=== PATIENT | male | born 1975 | race Caucasian/White ===

== ENCOUNTER 2016-11-19 08:54 | Emergency (ER) | payer OTHER ==
[~2016-11-19] VITALS: Ht 172.7 cm; Wt 139.1 kg
[~2016-11-19 08:54] MED LIST: ALBU8.5H8 IH; BUDE10.2 IH; BUSP30TA2 PO; OXCA300T PO; PRED10 PO; PRED20 PO; PRED5 PO; PROP10TA73 PO; QUET25TA PO; WARF5 PO
[2016-11-19] MEDS ORDERED: HYD25 PO (09:07)
[2016-11-19] MEDS ORDERED: TRAVZOS OU (09:07)
[2016-11-19] MEDS ORDERED: METO25 PO (09:07)
[2016-11-19] MEDS ORDERED: TYL3B PO (09:07)
[2016-11-19 09:33] LABS: BASOPHILS % (AUTO) 0.7 % (0.0-2.0); EOSINOPHILS % (AUTO) 6.9 % (1.0-6.0); HEMOGLOBIN 13.6 g/dL (13.5-17.5); LYMPHOCYTES # (AUTO) 1.2 K/uL (1.0-4.8); LYMPHOCYTES % (AUTO) 30.4 % (22.0-44.0); MEAN CORPUSCULAR HEMOGLOBIN 29.7 pg (26.0-34.0); MEAN CORPUSCULAR HGB CONC 34.1 G/dL (31.0-37.0); MEAN CORPUSCULAR VOLUME 87 fL (80-100); MONOCYTES # (AUTO) 0.5 K/uL (0.1-1.0); MONOCYTES % (AUTO) 11.8 % (2.0-9.0); NEUTROPHILS % (AUTO) 50.2 % (40.0-70.0); PLATELET COUNT (AUTO) 276 K/uL (150-450); RED BLOOD CELL COUNT(AUTO) 4.59 MIL/uL (4.50-5.90); RED CELL DISTRIBUTION WIDTH 15.4 % (11.5-14.5)
[2016-11-19 09:42] LABS: ANION GAP 6 mmol/L (8-16); CALCIUM, TOTAL 9.3 mg/dL (8.8-10.5); CARBON DIOXIDE 27 mmol/L (22-29); CHLORIDE 104 mmol/L (98-107); CREATININE 0.83 mg/dL (0.60-1.30); GLOMERULAR FILTR. RATE CALC > 60 mL/min (>60); SODIUM SERUM 137 mmol/L (136-145); UREA NITROGEN, BLOOD 16 mg/dL (7-18)
[2016-11-19 09:44] LABS: INR 3.2 (0.9-1.1); PROTHROMBIN TIME 33.5 SEC (9.4-11.6)
[2016-11-19 09:48] LABS: ALANINE AMINOTRANSFERASE 49 U/L (12-78); ALBUMIN 3.5 g/dL (3.4-5.0); ASPARTATE AMINOTRANSFERASE 26 U/L (15-37); BILIRUBIN,TOTAL 0.3 mg/dL (0.1-1.0)
[2016-11-19] MEDS ORDERED: DONNATAL/LIDOCAINE/MAALOX 55 ML BOTTLE PO ONE (11:00)
[2016-11-19 12:32] VITALS: BP 127/74
== END 2016-11-19 12:44 | disposition home or self-care (01) ==
LOC: EMS 08:56
DX: K21.9 Gastro-esophageal reflux disease without esophagitis (principal); J44.1 Chronic obstructive pulmonary disease with (acute) exacerbation; J45.909 Unspecified asthma, uncomplicated; Z77.22 Contact with and (suspected) exposure to environmental tobacco smoke (acute) (chronic); Z88.8 Allergy status to other drugs, medicaments and biological substances
CPT/HCPCS: 93005; 99285

== ENCOUNTER 2016-12-09 21:44 | Inpatient (IN) | payer OTHER ==
[~2016-12-09] VITALS: Ht 172.7 cm; Wt 139.0 kg
[~2016-12-09 21:44] MED LIST changes: +HYD25 PO; +METO25 PO; -PRED10 PO; -PRED20 PO; -PRED5 PO; -PROP10TA73 PO; +TRAVZOS OU; +TYL3B PO
[2016-12-09 22:05] LABS: BASOPHILS # (AUTO) 0.04 K/uL (0.00-0.20); BASOPHILS % (AUTO) 0.5 % (0.0-2.0); EOSINOPHILS # (AUTO) 0.17 K/uL (0.00-0.70); EOSINOPHILS % (AUTO) 2.43 % (1.0-6.0); HEMATOCRIT 37.9 % (41-53); HEMOGLOBIN 12.9 g/dL (13.5-17.5); LYMPHOCYTES # (AUTO) 1.7 K/uL (1.0-4.8); LYMPHOCYTES % (AUTO) 24.3 % (22.0-44.0); MEAN CORPUSCULAR HEMOGLOBIN 29.5 pg (26.0-34.0); MEAN CORPUSCULAR VOLUME 87 fL (80-100); MONOCYTES # (AUTO) 0.8 K/uL (0.1-1.0); MONOCYTES % (AUTO) 10.9 % (2.0-9.0); NEUTROPHILS # (AUTO) 4.4 K/uL (1.8-7.7); NEUTROPHILS % (AUTO) 61.9 % (40.0-70.0); PLATELET COUNT (AUTO) 244 K/uL (150-450); RED BLOOD CELL COUNT(AUTO) 4.37 MIL/uL (4.50-5.90); RED CELL DISTRIBUTION WIDTH 15.4 % (11.5-14.5); WHITE BLOOD COUNT (AUTO) 7.2 K/uL (4.5-11.0)
[2016-12-09 22:16] LABS: ANION GAP 11 mmol/L (8-16); CALCIUM, TOTAL 8.6 mg/dL (8.8-10.5); CARBON DIOXIDE 26 mmol/L (22-29); CHLORIDE 104 mmol/L (98-107); CREATININE 0.91 mg/dL (0.60-1.30); GLOMERULAR FILTR. RATE CALC > 60 mL/min (>60); INR 1.8 (0.9-1.1); POTASSIUM 3.8 mmol/L (3.5-5.1); PROTHROMBIN TIME 19.2 SEC (9.4-11.6); SODIUM SERUM 141 mmol/L (136-145); UREA NITROGEN, BLOOD 15 mg/dL (7-18)
[2016-12-09 22:33] LABS: B-TYPE NATRIURETIC PEPTIDE < 5 pg/mL (0-100)
[2016-12-09 22:41] LABS: ALANINE AMINOTRANSFERASE 44 U/L (12-78); ALBUMIN 3.7 g/dL (3.4-5.0); ASPARTATE AMINOTRANSFERASE 28 U/L (15-37); BILIRUBIN,TOTAL 0.2 mg/dL (0.1-1.0); CREATINE KINASE MB 3.3 ng/mL (0-5); CREATINE KINASE, TOTAL 635 U/L (39-308); TOTAL PROTEIN, SERUM 7.4 g/dL (6.4-8.2)
[2016-12-09 22:47] LABS: APPEARANCE,URINE CLEAR (CLEAR); GLUCOSE, URINE (UA) NEGATIVE (NEGATIVE); KETONES,URINE NEGATIVE (NEGATIVE); LEUKOCYTE ESTERASE ,URINE NEGATIVE (NEGATIVE); OCCULT BLOOD,URINE SMALL (NEGATIVE); PROTEIN,URINE NEGATIVE (NEGATIVE)
[2016-12-09 22:48] LABS: ADD UA MICROSCOPIC YES
[2016-12-09 22:54] LABS: SQUAMOUS EPITHELIAL CELL,UR Few /LPF (None Seen); WBC,URINE 0-2 /HPF (0-5)
[2016-12-09 23:40] VITALS: BP 129/64
[2016-12-10] MEDS ORDERED: METOPROLOL TARTRATE 25 MG TABLET PO SCH (00:30)
[2016-12-10] MEDS ORDERED: ACETAMINOPHEN 325 MG TABLET PO PRN (00:30)
[2016-12-10] MEDS ORDERED: NITROGLYCERIN 2% (1 GM=INCH) PACKET TP PRN (00:30)
[2016-12-10] MEDS ORDERED: NITROGLYCERIN 0.4 MG SUBLINGUAL TABLET #25 SL PRN (00:30)
[2016-12-10] MEDS ORDERED: OXCA150T17 PO (00:56)
[2016-12-10] MEDS: BusPIRone HCL 15 MG TABLET PO SCH ×3 (01:11→19:51)
[2016-12-10] MEDS: BUDESONIDE/FORMOTEROL FUMARATE 160-4.5 MCG/PUFF 6.9 GM INHALER IH SCH ×3 (01:11→19:51)
[2016-12-10 04:40] VITALS: BP 116/70
[2016-12-10 07:03] VITALS: BP 146/78
[2016-12-10] MEDS: HydrOXYzine HCL 25 MG TABLET PO SCH ×3 (08:36→19:51)
[2016-12-10] MEDS: ASPIRIN 81 MG CHEWABLE TABLET PO SCH (08:36)
[2016-12-10] MEDS: METOPROLOL TARTRATE 50 MG TABLET PO SCH ×2 (08:36→19:50)
[2016-12-10 11:30] VITALS: BP 123/69
[2016-12-10 15:09] VITALS: BP 149/74
[2016-12-10] MEDS ORDERED: RIVA20TA PO (15:20)
[2016-12-10] MEDS ORDERED: WARFARIN SODIUM 5 MG TABLET PO SCH (17:00)
[2016-12-10 19:48] VITALS: BP 145/83
[2016-12-10 23:38] VITALS: BP 130/82
[2016-12-11 04:39] VITALS: BP 141/89
[2016-12-11 07:06] VITALS: BP 138/85
[2016-12-11 07:51] LABS: ALANINE AMINOTRANSFERASE 53 U/L (12-78); ALBUMIN 3.5 g/dL (3.4-5.0); ANION GAP 12 mmol/L (8-16); ASPARTATE AMINOTRANSFERASE 29 U/L (15-37); BILIRUBIN,TOTAL 0.3 mg/dL (0.1-1.0); CALCIUM, TOTAL 8.5 mg/dL (8.8-10.5); CARBON DIOXIDE 25 mmol/L (22-29); CHLORIDE 103 mmol/L (98-107); CHOL/HDL RATIO 4.2 (4.2-7.3); CREATININE 0.73 mg/dL (0.60-1.30); GLOMERULAR FILTR. RATE CALC > 60 mL/min (>60); POTASSIUM 3.8 mmol/L (3.5-5.1); SODIUM SERUM 140 mmol/L (136-145); UREA NITROGEN, BLOOD 11 mg/dL (7-18)
[2016-12-11] MEDS: BusPIRone HCL 15 MG TABLET PO SCH (08:20)
[2016-12-11] MEDS: ASPIRIN 81 MG CHEWABLE TABLET PO SCH (08:20)
[2016-12-11] MEDS: HydrOXYzine HCL 25 MG TABLET PO SCH (08:20)
[2016-12-11] MEDS: METOPROLOL TARTRATE 50 MG TABLET PO SCH (08:21)
[2016-12-11] MEDS: BUDESONIDE/FORMOTEROL FUMARATE 160-4.5 MCG/PUFF 6.9 GM INHALER IH SCH (08:21)
[2016-12-11 08:45] LABS: BASOPHILS % (AUTO) 0.6 % (0.0-2.0); EOSINOPHILS % (AUTO) 4.2 % (1.0-6.0); HEMATOCRIT 40.6 % (41-53); HEMOGLOBIN 13.6 g/dL (13.5-17.5); LYMPHOCYTES # (AUTO) 1.3 K/uL (1.0-4.8); LYMPHOCYTES % (AUTO) 22.3 % (22.0-44.0); MEAN CORPUSCULAR HEMOGLOBIN 29.5 pg (26.0-34.0); MEAN CORPUSCULAR HGB CONC 33.4 G/dL (31.0-37.0); MEAN CORPUSCULAR VOLUME 88 fL (80-100); MONOCYTES # (AUTO) 0.6 K/uL (0.1-1.0); MONOCYTES % (AUTO) 9.9 % (2.0-9.0); NEUTROPHILS # (AUTO) 3.6 K/uL (1.8-7.7); PLATELET COUNT (AUTO) 251 K/uL (150-450); RED CELL DISTRIBUTION WIDTH 15.8 % (11.5-14.5); WHITE BLOOD COUNT (AUTO) 5.7 K/uL (4.5-11.0)
[2016-12-11 12:27] VITALS: BP 128/59
[2016-12-11] MEDS ORDERED: RIVAROXABAN 20 MG TABLET PO SCH (18:00)
[2016-12-11] MEDS ORDERED: SIMVASTATIN 20 MG TABLET PO SCH (21:00)
== END 2016-12-11 13:55 | disposition home or self-care (01) | DRG 311 ==
LOC: EMS 21:45 → 5N 23:07
PROVIDERS: ADMIT Internal Medicine; ATTEND Internal Medicine
DX: I20.0 Unstable angina (principal); I10 Essential (primary) hypertension; F31.9 Bipolar disorder, unspecified; G47.33 Obstructive sleep apnea (adult) (pediatric); I48.0 Paroxysmal atrial fibrillation; K21.9 Gastro-esophageal reflux disease without esophagitis; F17.210 Nicotine dependence, cigarettes, uncomplicated; J44.9 Chronic obstructive pulmonary disease, unspecified; Z86.73 Personal history of transient ischemic attack (TIA), and cerebral infarction without residual deficits; Z79.01 Long term (current) use of anticoagulants; Z82.49 Family history of ischemic heart disease and other diseases of the circulatory system; Z83.3 Family history of diabetes mellitus; Z88.8 Allergy status to other drugs, medicaments and biological substances
CPT/HCPCS: 83735; 84443; 93005; 93306; 99285

== ENCOUNTER 2017-03-01 16:43 | Emergency (ER) | payer OTHER ==
[~2017-03-01] VITALS: Ht 175.3 cm; Wt 130.0 kg
[~2017-03-01 16:43] MED LIST changes: -ALBU8.5H8 IH; +OXCA150T17 PO; -OXCA300T PO; -QUET25TA PO; +RIVA20TA PO; -TRAVZOS OU; -TYL3B PO; -WARF5 PO
[2017-03-01] MEDS ORDERED: NADO20 PO (16:57)
[2017-03-01] MEDS ORDERED: CETI-290 PO (16:58)
[2017-03-01 19:36] LABS: BASOPHILS # (AUTO) 0.05 K/uL (0.00-0.20); BASOPHILS % (AUTO) 0.6 % (0.0-2.0); EOSINOPHILS # (AUTO) 0.28 K/uL (0.00-0.70); EOSINOPHILS % (AUTO) 3.71 % (1.0-6.0); HEMATOCRIT 46.6 % (41-53); HEMOGLOBIN 15.3 g/dL (13.5-17.5); LYMPHOCYTES % (AUTO) 26.8 % (22.0-44.0); MEAN CORPUSCULAR HEMOGLOBIN 28.4 pg (26.0-34.0); MEAN CORPUSCULAR HGB CONC 32.8 G/dL (31.0-37.0); MEAN CORPUSCULAR VOLUME 87 fL (80-100); MONOCYTES # (AUTO) 0.7 K/uL (0.1-1.0); MONOCYTES % (AUTO) 9.5 % (2.0-9.0); NEUTROPHILS # (AUTO) 4.4 K/uL (1.8-7.7); NEUTROPHILS % (AUTO) 59.3 % (40.0-70.0); PLATELET COUNT (AUTO) 285 K/uL (150-450); RED BLOOD CELL COUNT(AUTO) 5.37 MIL/uL (4.50-5.90); RED CELL DISTRIBUTION WIDTH 14.1 % (11.5-14.5); WHITE BLOOD COUNT (AUTO) 7.5 K/uL (4.5-11.0)
[2017-03-01 19:49] LABS: ANION GAP 3 mmol/L (8-16); CALCIUM, TOTAL 9.4 mg/dL (8.8-10.5); CARBON DIOXIDE 34 mmol/L (22-29); CHLORIDE 103 mmol/L (98-107); CREATININE 0.99 mg/dL (0.60-1.30); GLOMERULAR FILTR. RATE CALC > 60 mL/min (>60); POTASSIUM 4.1 mmol/L (3.5-5.1); SODIUM SERUM 140 mmol/L (136-145); UREA NITROGEN, BLOOD 15 mg/dL (7-18)
[2017-03-01 19:50] LABS: PROTHROMBIN TIME 10.6 SEC (9.4-11.6)
[2017-03-01 19:55] LABS: ALANINE AMINOTRANSFERASE 43 U/L (12-78); ALBUMIN 4.1 g/dL (3.4-5.0); ASPARTATE AMINOTRANSFERASE 23 U/L (15-37); BILIRUBIN,TOTAL 0.2 mg/dL (0.1-1.0)
[2017-03-01 20:10] LABS: APPEARANCE,URINE CLEAR (CLEAR); GLUCOSE, URINE (UA) NEGATIVE (NEGATIVE); KETONES,URINE NEGATIVE (NEGATIVE); LEUKOCYTE ESTERASE ,URINE NEGATIVE (NEGATIVE); OCCULT BLOOD,URINE NEGATIVE (NEGATIVE); PROTEIN,URINE NEGATIVE (NEGATIVE)
[2017-03-01 20:11] LABS: ADD UA MICROSCOPIC NO
[2017-03-01 20:56] VITALS: BP 122/87
== END 2017-03-01 21:31 | disposition home or self-care (01) ==
LOC: EMS 16:46
DX: K92.2 Gastrointestinal hemorrhage, unspecified (principal); J45.909 Unspecified asthma, uncomplicated; Z87.820 Personal history of traumatic brain injury; K21.9 Gastro-esophageal reflux disease without esophagitis; I10 Essential (primary) hypertension; I48.91 Unspecified atrial fibrillation; F32.9 Major depressive disorder, single episode, unspecified; G47.30 Sleep apnea, unspecified; F17.210 Nicotine dependence, cigarettes, uncomplicated; Z88.8 Allergy status to other drugs, medicaments and biological substances; Z79.899 Other long term (current) drug therapy; Z98.890 Other specified postprocedural states
CPT/HCPCS: 82271; 99284

== ENCOUNTER 2017-10-26 17:10 | Inpatient (IN) | payer OTHER, MEDICAID ==
[~2017-10-26] VITALS: Ht 172.7 cm; Wt 121.1 kg
[~2017-10-26 17:10] MED LIST changes: +CETI-290 PO; -METO25 PO; +NADO20 PO; -OXCA150T17 PO; +OXCA150T27 PO
[2017-10-26 20:23] LABS: APPEARANCE,URINE CLOUDY (CLEAR); GLUCOSE, URINE (UA) NEGATIVE (NEGATIVE); KETONES,URINE 40 mg/dL (NEGATIVE); LEUKOCYTE ESTERASE ,URINE NEGATIVE (NEGATIVE); NITRATE,URINE NEGATIVE (NEGATIVE); OCCULT BLOOD,URINE LARGE (NEGATIVE); PH,URINE 5.5 (5.0-8.0); PROTEIN,URINE SEE CONFIRM (NEGATIVE); UROBILINOGEN,URINE 0.2 mg/dL (<=1.0)
[2017-10-26 20:46] LABS: BILIRUBIN,URINE PRELIM. POSITIVE (NEGATIVE)
[2017-10-26 20:57] LABS: BACTERIA,URINE Few /HPF (None Seen); SQUAMOUS EPITHELIAL CELL,UR Rare /LPF (None Seen)
[2017-10-26 20:58] LABS: COARSE GRANULAR CASTS,URINE 0-2 /LPF (None Seen); HYALINE CASTS, URINE 0-2 /LPF (None Seen)
[2017-10-26 20:59] LABS: MUCUS,URINE Few LPF (None Seen); SULFOSALICYLIC ACID,URINE 1+ (Negative)
[2017-10-26 23:02] LABS: BASOPHILS % (AUTO) 0.4 % (0.0-2.0); EOSINOPHILS % (AUTO) 0.1 % (1.0-6.0); HEMATOCRIT 37.8 % (41-53); HEMOGLOBIN 12.9 g/dL (13.5-17.5); LYMPHOCYTES # (AUTO) 0.9 K/uL (1.0-4.8); LYMPHOCYTES % (AUTO) 10.4 % (22.0-44.0); MEAN CORPUSCULAR HEMOGLOBIN 27.6 pg (26.0-34.0); MEAN CORPUSCULAR HGB CONC 34.1 G/dL (31.0-37.0); MEAN CORPUSCULAR VOLUME 81 fL (80-100); NEUTROPHILS # (AUTO) 6.9 K/uL (1.8-7.7); NEUTROPHILS % (AUTO) 78.1 % (40.0-70.0); PLATELET COUNT (AUTO) 269 K/uL (150-450); RED BLOOD CELL COUNT(AUTO) 4.66 MIL/uL (4.50-5.90); RED CELL DISTRIBUTION WIDTH 16.1 % (11.5-14.5)
[2017-10-26 23:20] LABS: ANION GAP 12 mmol/L (8-16); CALCIUM, TOTAL 9.1 mg/dL (8.8-10.5); CARBON DIOXIDE 25 mmol/L (22-29); CHLORIDE 100 mmol/L (98-107); CREATININE 0.87 mg/dL (0.60-1.30); GLOMERULAR FILTR. RATE CALC > 60 mL/min (>60); GLUCOSE,RANDOM 133 mg/dL (70-110); POTASSIUM 3.8 mmol/L (3.5-5.1); SODIUM SERUM 137 mmol/L (136-145); UREA NITROGEN, BLOOD 15 mg/dL (7-18)
[2017-10-26 23:25] LABS: INR 1.1 (0.9-1.1)
[2017-10-26 23:26] LABS: ALANINE AMINOTRANSFERASE 52 U/L (12-78); ALBUMIN 3.2 g/dL (3.4-5.0); ALKALINE PHOSPHATASE 89 U/L (46-116); ASPARTATE AMINOTRANSFERASE 29 U/L (15-37); BILIRUBIN,TOTAL 0.5 mg/dL (0.1-1.0); TOTAL PROTEIN, SERUM 7.4 g/dL (6.4-8.2)
[2017-10-27 00:51] LABS: AMPHET/METH SCREEN,URINE NEGATIVE (NEGATIVE); BARBITURATE SCREEN, URINE NEGATIVE (NEGATIVE); BENZODIAZEPINES SCREEN,URINE NEGATIVE (NEGATIVE); CANNABINOID SCREEN,URINE NEGATIVE (NEGATIVE); COCAINE SCREEN,URINE NEGATIVE (NEGATIVE); METHADONE SCREEN, URINE NEGATIVE (NEGATIVE); OPIATE SCREEN,URINE NEGATIVE (NEGATIVE); PHENCYCLIDINE SCREEN,URINE NEGATIVE (NEGATIVE)
[2017-10-27] MEDS ORDERED: HALOPERIDOL 5 MG TABLET PO PRN (01:00)
[2017-10-27 01:35] VITALS: BP 126/82
[2017-10-27] MEDS: LORazepam 2 MG TABLET PO PRN (01:58)
[2017-10-27 08:00] VITALS: BP 127/80
[2017-10-27] MEDS: CEPHALEXIN MONOHYDRATE 500 MG CAPSULE PO SCH ×4 (08:16→20:04)
[2017-10-27] MEDS: SULFAMETHOX/TRIMETH DS 800-160 MG/TABLET PO SCH ×2 (08:16→18:06)
[2017-10-27] MEDS: CETIRIZINE HCL 10 MG TABLET PO SCH (08:16)
[2017-10-27] MEDS: BusPIRone HCL 15 MG TABLET PO SCH ×2 (12:08→17:01)
[2017-10-27] MEDS ORDERED: DOCUSATE SODIUM 100 MG CAPSULE PO PRN (13:45)
[2017-10-27] MEDS ORDERED: NICOTINE 14 MG/24 HOUR PATCH TD PRN (13:45)
[2017-10-27] MEDS ORDERED: PETROLATUM,WHITE 71 GM JELLY TP PRN (13:45)
[2017-10-27] MEDS ORDERED: ALBUTEROL SULFATE HFA 90 MCG/PUFF 8 GM INHALER IH PRN (13:45)
[2017-10-27] MEDS ORDERED: MAGNESIUM HYDROXIDE SUSPENSION 30 ML UDCUP PO PRN (13:45)
[2017-10-27] MEDS ORDERED: ONDANSETRON HCL 4 MG TABLET PO PRN (13:45)
[2017-10-27] MEDS ORDERED: GuaiFENesin/D-METHORPHAN [SUGAR-FREE] 200-20MG/10 ML SYRUP UDCUP PO PRN (13:45)
[2017-10-27] MEDS ORDERED: CloNIDine HCL 0.1 MG TABLET PO PRN (13:45)
[2017-10-27] MEDS: RIVAROXABAN 20 MG TABLET PO SCH (17:01)
[2017-10-27 18:59] VITALS: BP 136/84
[2017-10-27] MEDS: NADOLOL 20 MG TABLET PO SCH (20:04)
[2017-10-27] MEDS: OLANZapine 5 MG TABLET PO SCH (20:29)
[2017-10-27] MEDS: ZOLPIDEM TARTRATE 10 MG TABLET PO PRN (21:15)
[2017-10-28 01:41] VITALS: BP 110/69
[2017-10-28] MEDS: ACETAMINOPHEN 325 MG TABLET PO PRN (04:11)
[2017-10-28 07:17] LABS: BASOPHILS % (AUTO) 0.5 % (0.0-2.0); EOSINOPHILS % (AUTO) 2.7 % (1.0-6.0); HEMATOCRIT 36.3 % (41-53); HEMOGLOBIN 12.1 g/dL (13.5-17.5); LYMPHOCYTES # (AUTO) 1.6 K/uL (1.0-4.8); LYMPHOCYTES % (AUTO) 22.7 % (22.0-44.0); MEAN CORPUSCULAR HEMOGLOBIN 27.1 pg (26.0-34.0); MEAN CORPUSCULAR HGB CONC 33.5 G/dL (31.0-37.0); MEAN CORPUSCULAR VOLUME 81 fL (80-100); MONOCYTES # (AUTO) 0.7 K/uL (0.1-1.0); MONOCYTES % (AUTO) 9.8 % (2.0-9.0); NEUTROPHILS # (AUTO) 4.6 K/uL (1.8-7.7); NEUTROPHILS % (AUTO) 64.3 % (40.0-70.0); PLATELET COUNT (AUTO) 315 K/uL (150-450); RED BLOOD CELL COUNT(AUTO) 4.47 MIL/uL (4.50-5.90)
[2017-10-28 07:21] LABS: HEMOGLOBIN A1C 6.3 % (4.5-6.2)
[2017-10-28 07:48] LABS: ALANINE AMINOTRANSFERASE 66 U/L (12-78); ALBUMIN 2.8 g/dL (3.4-5.0); ALKALINE PHOSPHATASE 85 U/L (46-116); ANION GAP 10 mmol/L (8-16); ASPARTATE AMINOTRANSFERASE 35 U/L (15-37); BILIRUBIN,TOTAL 0.4 mg/dL (0.1-1.0); CALCIUM, TOTAL 8.7 mg/dL (8.8-10.5); CARBON DIOXIDE 26 mmol/L (22-29); CHLORIDE 100 mmol/L (98-107); CHOL/HDL RATIO 3.4 (4.2-7.3); CHOLESTEROL 108 mg/dL (131-200); CREATININE 0.81 mg/dL (0.60-1.30); FREE T4 (FREE THYROXINE) 1.02 ng/dL (0.76-1.46); GLOMERULAR FILTR. RATE CALC > 60 mL/min (>60); GLUCOSE,RANDOM 114 mg/dL (70-110); HDL CHOLESTEROL 32 mg/dL (40-60); LDL CHOL (CALC.) 57 mg/dL (0-130); POTASSIUM 4.1 mmol/L (3.5-5.1); SODIUM SERUM 136 mmol/L (136-145); THYROID STIMULATING HORMONE 1.79 uIU/mL (0.36-3.74); TOTAL PROTEIN, SERUM 7.2 g/dL (6.4-8.2); TRIGLYCERIDES 94 mg/dL (15-150); UREA NITROGEN, BLOOD 18 mg/dL (7-18)
[2017-10-28 08:05] VITALS: BP 133/81
[2017-10-28] MEDS: CEPHALEXIN MONOHYDRATE 500 MG CAPSULE PO SCH ×4 (08:48→20:01)
[2017-10-28] MEDS: BusPIRone HCL 15 MG TABLET PO SCH ×3 (08:49→16:36)
[2017-10-28] MEDS: SULFAMETHOX/TRIMETH DS 800-160 MG/TABLET PO SCH ×2 (08:49→16:36)
[2017-10-28] MEDS: NADOLOL 20 MG TABLET PO SCH (08:50)
[2017-10-28] MEDS: CETIRIZINE HCL 10 MG TABLET PO SCH (08:50)
[2017-10-28 16:22] VITALS: BP 127/87
[2017-10-28] MEDS: RIVAROXABAN 20 MG TABLET PO SCH (16:36)
[2017-10-28] MEDS: LOPERAMIDE HCL 2 MG CAPSULE PO PRN (17:28)
[2017-10-28] MEDS: OLANZapine 5 MG TABLET PO SCH (20:01)
[2017-10-28] MEDS: LORazepam 2 MG TABLET PO PRN (21:29)
[2017-10-29 03:11] VITALS: BP 115/73
[2017-10-29 08:00] VITALS: BP 135/86
[2017-10-29] MEDS: SULFAMETHOX/TRIMETH DS 800-160 MG/TABLET PO SCH ×2 (08:00→16:31)
[2017-10-29] MEDS: BusPIRone HCL 15 MG TABLET PO SCH ×3 (08:00→16:31)
[2017-10-29] MEDS: CEPHALEXIN MONOHYDRATE 500 MG CAPSULE PO SCH ×4 (08:00→20:33)
[2017-10-29] MEDS: CETIRIZINE HCL 10 MG TABLET PO SCH (08:01)
[2017-10-29] MEDS: NADOLOL 20 MG TABLET PO SCH (08:01)
[2017-10-29 16:21] VITALS: BP 129/78
[2017-10-29] MEDS: ACETAMINOPHEN 325 MG TABLET PO PRN (16:31)
[2017-10-29] MEDS: RIVAROXABAN 20 MG TABLET PO SCH (16:32)
[2017-10-29] MEDS: MAG HYDROX/AL HYDROX/SIMETH ES 30 ML SUSPENSION UDCUP PO PRN (18:30)
[2017-10-29] MEDS: OLANZapine 5 MG TABLET PO SCH (20:33)
[2017-10-30 00:57] VITALS: BP 123/74
[2017-10-30] MEDS: ZOLPIDEM TARTRATE 10 MG TABLET PO PRN ×2 (01:00→20:59)
[2017-10-30 08:00] VITALS: BP 160/81
[2017-10-30] MEDS: SULFAMETHOX/TRIMETH DS 800-160 MG/TABLET PO SCH ×2 (08:59→16:13)
[2017-10-30] MEDS: BusPIRone HCL 15 MG TABLET PO SCH ×3 (08:59→16:13)
[2017-10-30] MEDS: CETIRIZINE HCL 10 MG TABLET PO SCH (08:59)
[2017-10-30] MEDS: CEPHALEXIN MONOHYDRATE 500 MG CAPSULE PO SCH ×4 (08:59→21:00)
[2017-10-30] MEDS: NADOLOL 20 MG TABLET PO SCH (09:00)
[2017-10-30] MEDS: RIVAROXABAN 20 MG TABLET PO SCH (16:13)
[2017-10-30 16:54] VITALS: BP 121/78
[2017-10-30] MEDS: OLANZapine 5 MG TABLET PO SCH (21:00)
[2017-10-31 04:58] VITALS: BP 139/49
[2017-10-31] MEDS: MAG HYDROX/AL HYDROX/SIMETH ES 30 ML SUSPENSION UDCUP PO PRN (06:57)
[2017-10-31] MEDS: BusPIRone HCL 15 MG TABLET PO SCH ×3 (08:31→16:45)
[2017-10-31] MEDS: NADOLOL 20 MG TABLET PO SCH (08:31)
[2017-10-31] MEDS: CETIRIZINE HCL 10 MG TABLET PO SCH (08:31)
[2017-10-31] MEDS: SULFAMETHOX/TRIMETH DS 800-160 MG/TABLET PO SCH ×2 (08:31→16:44)
[2017-10-31] MEDS: CEPHALEXIN MONOHYDRATE 500 MG CAPSULE PO SCH ×4 (08:31→20:29)
[2017-10-31 09:10] VITALS: BP 132/83
[2017-10-31] MEDS: FERROUS SULFATE 325 MG EC TABLET PO SCH (16:44)
[2017-10-31] MEDS: RIVAROXABAN 20 MG TABLET PO SCH (16:45)
[2017-10-31 17:00] VITALS: BP 138/62
[2017-10-31] MEDS: OLANZapine 5 MG TABLET PO SCH (20:37)
[2017-10-31] MEDS: ZOLPIDEM TARTRATE 10 MG TABLET PO PRN (22:18)
[2017-11-01 00:17] VITALS: BP 158/69
[2017-11-01] MEDS: ACETAMINOPHEN 325 MG TABLET PO PRN (00:23)
[2017-11-01] MEDS: FERROUS SULFATE 325 MG EC TABLET PO SCH ×3 (07:11→17:08)
[2017-11-01] MEDS: SULFAMETHOX/TRIMETH DS 800-160 MG/TABLET PO SCH ×2 (08:56→17:08)
[2017-11-01] MEDS: CETIRIZINE HCL 10 MG TABLET PO SCH (08:56)
[2017-11-01] MEDS: BusPIRone HCL 15 MG TABLET PO SCH ×3 (08:56→17:08)
[2017-11-01] MEDS: CEPHALEXIN MONOHYDRATE 500 MG CAPSULE PO SCH ×4 (08:56→20:23)
[2017-11-01] MEDS: NADOLOL 20 MG TABLET PO SCH (08:56)
[2017-11-01] MEDS: MAG HYDROX/AL HYDROX/SIMETH ES 30 ML SUSPENSION UDCUP PO PRN (09:38)
[2017-11-01 09:43] VITALS: BP 140/71
[2017-11-01] MEDS: LORazepam 2 MG TABLET PO PRN (13:29)
[2017-11-01] MEDS: RIVAROXABAN 20 MG TABLET PO SCH (17:08)
[2017-11-01 17:52] VITALS: BP 106/66
[2017-11-01] MEDS: OLANZapine 10 MG TABLET PO SCH (20:24)
[2017-11-02 00:38] VITALS: BP 128/84
[2017-11-02 02:58] VITALS: BP 144/97
[2017-11-02] MEDS: LORazepam 2 MG TABLET PO PRN (02:58)
[2017-11-02] MEDS: FERROUS SULFATE 325 MG EC TABLET PO SCH ×3 (07:00→17:26)
[2017-11-02] MEDS: LOPERAMIDE HCL 2 MG CAPSULE PO PRN ×2 (07:53→15:50)
[2017-11-02 08:22] VITALS: BP 138/76
[2017-11-02] MEDS: NADOLOL 20 MG TABLET PO SCH (09:25)
[2017-11-02] MEDS: CETIRIZINE HCL 10 MG TABLET PO SCH (09:25)
[2017-11-02] MEDS: CEPHALEXIN MONOHYDRATE 500 MG CAPSULE PO SCH ×4 (09:25→20:37)
[2017-11-02] MEDS: BusPIRone HCL 15 MG TABLET PO SCH ×3 (09:25→16:01)
[2017-11-02] MEDS: SULFAMETHOX/TRIMETH DS 800-160 MG/TABLET PO SCH ×2 (09:25→16:01)
[2017-11-02] MEDS: OXcarbazepine 300 MG TABLET PO SCH (16:01)
[2017-11-02] MEDS: RIVAROXABAN 20 MG TABLET PO SCH (17:26)
[2017-11-02 20:01] VITALS: BP 132/76
[2017-11-02] MEDS: OLANZapine 10 MG TABLET PO SCH (20:37)
[2017-11-03 03:58] VITALS: BP 124/71
[2017-11-03] MEDS: FERROUS SULFATE 325 MG EC TABLET PO SCH ×3 (07:01→17:51)
[2017-11-03] MEDS: CEPHALEXIN MONOHYDRATE 500 MG CAPSULE PO SCH ×4 (08:27→20:11)
[2017-11-03] MEDS: SULFAMETHOX/TRIMETH DS 800-160 MG/TABLET PO SCH ×2 (08:27→15:47)
[2017-11-03] MEDS: CETIRIZINE HCL 10 MG TABLET PO SCH (08:27)
[2017-11-03] MEDS: OXcarbazepine 300 MG TABLET PO SCH ×2 (08:27→15:47)
[2017-11-03] MEDS: BusPIRone HCL 15 MG TABLET PO SCH ×3 (08:27→15:47)
[2017-11-03] MEDS: NADOLOL 20 MG TABLET PO SCH (08:28)
[2017-11-03 08:56] VITALS: BP 134/77
[2017-11-03 16:06] VITALS: BP 144/81
[2017-11-03] MEDS: RIVAROXABAN 20 MG TABLET PO SCH (17:51)
[2017-11-03] MEDS: OLANZapine 10 MG TABLET PO SCH (20:11)
[2017-11-04] MEDS: MAG HYDROX/AL HYDROX/SIMETH ES 30 ML SUSPENSION UDCUP PO PRN (04:38)
[2017-11-04 04:43] VITALS: BP 125/75
[2017-11-04] MEDS: BusPIRone HCL 15 MG TABLET PO SCH ×3 (08:21→17:57)
[2017-11-04] MEDS: NADOLOL 20 MG TABLET PO SCH (08:21)
[2017-11-04] MEDS: SULFAMETHOX/TRIMETH DS 800-160 MG/TABLET PO SCH ×2 (08:21→17:57)
[2017-11-04] MEDS: CEPHALEXIN MONOHYDRATE 500 MG CAPSULE PO SCH ×4 (08:21→20:01)
[2017-11-04] MEDS: FERROUS SULFATE 325 MG EC TABLET PO SCH ×3 (08:21→17:57)
[2017-11-04] MEDS: CETIRIZINE HCL 10 MG TABLET PO SCH (08:22)
[2017-11-04] MEDS: OXcarbazepine 300 MG TABLET PO SCH ×2 (08:22→17:57)
[2017-11-04 08:51] VITALS: BP 131/83
[2017-11-04] MEDS: RIVAROXABAN 20 MG TABLET PO SCH (17:57)
[2017-11-04 18:13] VITALS: BP 134/75
[2017-11-04] MEDS: OLANZapine 10 MG TABLET PO SCH (20:01)
[2017-11-05] MEDS: FERROUS SULFATE 325 MG EC TABLET PO SCH ×3 (07:18→16:41)
[2017-11-05 08:00] VITALS: BP 116/69
[2017-11-05] MEDS: CETIRIZINE HCL 10 MG TABLET PO SCH (08:05)
[2017-11-05] MEDS: SULFAMETHOX/TRIMETH DS 800-160 MG/TABLET PO SCH ×2 (08:05→16:11)
[2017-11-05] MEDS: CEPHALEXIN MONOHYDRATE 500 MG CAPSULE PO SCH ×4 (08:05→20:35)
[2017-11-05] MEDS: BusPIRone HCL 15 MG TABLET PO SCH ×3 (08:05→16:11)
[2017-11-05] MEDS: NADOLOL 20 MG TABLET PO SCH (08:06)
[2017-11-05] MEDS: OXcarbazepine 300 MG TABLET PO SCH ×2 (08:06→16:11)
[2017-11-05] MEDS: RIVAROXABAN 20 MG TABLET PO SCH (16:41)
[2017-11-05 16:43] VITALS: BP 118/71
[2017-11-05] MEDS: OLANZapine 10 MG TABLET PO SCH (20:35)
[2017-11-06 04:34] VITALS: BP 143/77
[2017-11-06] MEDS: FERROUS SULFATE 325 MG EC TABLET PO SCH ×3 (06:47→17:04)
[2017-11-06] MEDS: NADOLOL 20 MG TABLET PO SCH (08:08)
[2017-11-06] MEDS: CETIRIZINE HCL 10 MG TABLET PO SCH (08:08)
[2017-11-06] MEDS: BusPIRone HCL 15 MG TABLET PO SCH ×3 (08:08→17:05)
[2017-11-06] MEDS: OXcarbazepine 300 MG TABLET PO SCH ×2 (08:08→17:05)
[2017-11-06 09:16] VITALS: BP 149/90
[2017-11-06 17:00] VITALS: BP 152/81
[2017-11-06] MEDS: RIVAROXABAN 20 MG TABLET PO SCH (17:05)
[2017-11-06] MEDS: MAG HYDROX/AL HYDROX/SIMETH ES 30 ML SUSPENSION UDCUP PO PRN (18:22)
[2017-11-06] MEDS: OLANZapine 10 MG TABLET PO SCH (20:30)
[2017-11-07 03:38] VITALS: BP 113/74
[2017-11-07] MEDS: FERROUS SULFATE 325 MG EC TABLET PO SCH ×3 (07:06→16:04)
[2017-11-07] MEDS: OXcarbazepine 300 MG TABLET PO SCH ×2 (07:54→16:04)
[2017-11-07] MEDS: BusPIRone HCL 15 MG TABLET PO SCH ×3 (07:54→16:04)
[2017-11-07] MEDS: NADOLOL 20 MG TABLET PO SCH (07:55)
[2017-11-07] MEDS: CETIRIZINE HCL 10 MG TABLET PO SCH (07:55)
[2017-11-07 08:30] VITALS: BP 142/81
[2017-11-07] MEDS: RIVAROXABAN 20 MG TABLET PO SCH (16:04)
[2017-11-07 16:41] VITALS: BP 130/75
[2017-11-07] MEDS: OLANZapine 10 MG TABLET PO SCH (20:12)
[2017-11-07] MEDS: ACETAMINOPHEN 325 MG TABLET PO PRN (20:16)
[2017-11-08 03:39] VITALS: BP 113/87
[2017-11-08] MEDS: IBUPROFEN 400 MG TABLET PO PRN (03:55)
[2017-11-08] MEDS: FERROUS SULFATE 325 MG EC TABLET PO SCH ×3 (07:24→16:27)
[2017-11-08] MEDS: CETIRIZINE HCL 10 MG TABLET PO SCH (08:13)
[2017-11-08] MEDS: BusPIRone HCL 15 MG TABLET PO SCH ×3 (08:13→16:27)
[2017-11-08] MEDS: OXcarbazepine 300 MG TABLET PO SCH ×2 (08:13→16:27)
[2017-11-08] MEDS: NADOLOL 20 MG TABLET PO SCH (08:13)
[2017-11-08 08:19] VITALS: BP 126/74
[2017-11-08] MEDS: LOPERAMIDE HCL 2 MG CAPSULE PO PRN (09:24)
[2017-11-08] MEDS: RIVAROXABAN 20 MG TABLET PO SCH (16:27)
[2017-11-08 17:35] VITALS: BP 118/74
[2017-11-08] MEDS: OLANZapine 10 MG TABLET PO SCH (20:24)
[2017-11-09] MEDS: LOPERAMIDE HCL 2 MG CAPSULE PO PRN (06:21)
[2017-11-09] MEDS: FERROUS SULFATE 325 MG EC TABLET PO SCH ×3 (06:33→16:33)
[2017-11-09 08:15] VITALS: BP 164/99
[2017-11-09] MEDS: BusPIRone HCL 15 MG TABLET PO SCH ×3 (08:21→16:33)
[2017-11-09] MEDS: CETIRIZINE HCL 10 MG TABLET PO SCH (08:21)
[2017-11-09] MEDS: OXcarbazepine 300 MG TABLET PO SCH ×2 (08:21→16:33)
[2017-11-09] MEDS: NADOLOL 20 MG TABLET PO SCH (08:21)
[2017-11-09 16:00] VITALS: BP 121/73
[2017-11-09] MEDS: RIVAROXABAN 20 MG TABLET PO SCH (16:33)
[2017-11-09] MEDS: OLANZapine 10 MG TABLET PO SCH (20:19)
[2017-11-10 04:35] VITALS: BP 137/73
[2017-11-10] MEDS: IBUPROFEN 400 MG TABLET PO PRN (04:46)
[2017-11-10] MEDS: FERROUS SULFATE 325 MG EC TABLET PO SCH ×3 (06:57→16:41)
[2017-11-10] MEDS: OXcarbazepine 300 MG TABLET PO SCH ×2 (08:00→16:41)
[2017-11-10] MEDS: NADOLOL 20 MG TABLET PO SCH (08:00)
[2017-11-10] MEDS: CETIRIZINE HCL 10 MG TABLET PO SCH (08:00)
[2017-11-10] MEDS: BusPIRone HCL 15 MG TABLET PO SCH ×3 (08:00→16:41)
[2017-11-10 08:05] VITALS: BP 137/81
[2017-11-10] MEDS: RIVAROXABAN 20 MG TABLET PO SCH (16:41)
[2017-11-10] MEDS: OLANZapine 10 MG TABLET PO SCH (20:08)
[2017-11-10 21:55] VITALS: BP 135/87
[2017-11-11 05:08] VITALS: BP 136/77
[2017-11-11] MEDS: IBUPROFEN 400 MG TABLET PO PRN (05:13)
[2017-11-11] MEDS: LOPERAMIDE HCL 2 MG CAPSULE PO PRN (05:56)
[2017-11-11] MEDS: FERROUS SULFATE 325 MG EC TABLET PO SCH ×3 (06:59→17:00)
[2017-11-11 08:05] VITALS: BP 130/68
[2017-11-11] MEDS: BusPIRone HCL 15 MG TABLET PO SCH ×3 (08:17→17:00)
[2017-11-11] MEDS: NADOLOL 20 MG TABLET PO SCH (08:17)
[2017-11-11] MEDS: OXcarbazepine 300 MG TABLET PO SCH ×2 (08:18→17:00)
[2017-11-11] MEDS: CETIRIZINE HCL 10 MG TABLET PO SCH (08:18)
[2017-11-11 16:25] VITALS: BP 129/70
[2017-11-11] MEDS: RIVAROXABAN 20 MG TABLET PO SCH (17:00)
[2017-11-11] MEDS: OLANZapine 10 MG TABLET PO SCH (20:29)
[2017-11-11] MEDS: ZOLPIDEM TARTRATE 10 MG TABLET PO PRN (21:37)
[2017-11-12] MEDS: FERROUS SULFATE 325 MG EC TABLET PO SCH ×2 (06:54→12:29)
[2017-11-12 08:15] VITALS: BP 131/73
[2017-11-12] MEDS: BusPIRone HCL 15 MG TABLET PO SCH ×2 (08:48→12:29)
[2017-11-12] MEDS: NADOLOL 20 MG TABLET PO SCH (08:48)
[2017-11-12] MEDS: CETIRIZINE HCL 10 MG TABLET PO SCH (08:48)
[2017-11-12] MEDS: OXcarbazepine 300 MG TABLET PO SCH (08:48)
[2017-11-12] MEDS ORDERED: FERR-89 PO (13:15)
[2017-11-12] MEDS ORDERED: OLAN10TA3 PO (13:20)
== END 2017-11-12 15:30 | disposition home or self-care (01) | DRG 885 ==
LOC: EMS 17:11 → 3EX 23:30
PROVIDERS: ADMIT Psychiatry & Neurology Psychiatry; ATTEND Psychiatry & Neurology Child & Adolescent Psychiatry
DX: F25.1 Schizoaffective disorder, depressive type (principal); L03.116 Cellulitis of left lower limb; D64.9 Anemia, unspecified; F17.200 Nicotine dependence, unspecified, uncomplicated; F41.9 Anxiety disorder, unspecified; G47.33 Obstructive sleep apnea (adult) (pediatric); H40.9 Unspecified glaucoma; I10 Essential (primary) hypertension; I48.2 Chronic atrial fibrillation; F32.9 Major depressive disorder, single episode, unspecified; F79 Unspecified intellectual disabilities; I69.328 Other speech and language deficits following cerebral infarction; J44.9 Chronic obstructive pulmonary disease, unspecified; K21.9 Gastro-esophageal reflux disease without esophagitis; Z59.0 Homelessness; Z71.6 Tobacco abuse counseling; Z79.01 Long term (current) use of anticoagulants; Z79.899 Other long term (current) drug therapy; Z88.8 Allergy status to other drugs, medicaments and biological substances
CPT/HCPCS: 74176; 83036; 84436; 84439; 84443; 87081; 94660; 99285; G0480

== ENCOUNTER 2017-11-22 16:19 | Emergency (ER) | payer OTHER ==
[~2017-11-22] VITALS: Ht 175.3 cm; Wt 119.8 kg
[~2017-11-22 16:19] MED LIST changes: -BUDE10.2 IH; +FERR-89 PO; -HYD25 PO; -NADO20 PO; +OLAN10TA3 PO; -RIVA20TA PO
[2017-11-22 17:34] LABS: BASOPHILS % (AUTO) 0.5 % (0.0-2.0); EOSINOPHILS % (AUTO) 0.5 % (1.0-6.0); HEMATOCRIT 41.1 % (41-53); HEMOGLOBIN 13.5 g/dL (13.5-17.5); LYMPHOCYTES # (AUTO) 0.8 K/uL (1.0-4.8); LYMPHOCYTES % (AUTO) 10.9 % (22.0-44.0); MEAN CORPUSCULAR HEMOGLOBIN 27.3 pg (26.0-34.0); MEAN CORPUSCULAR HGB CONC 32.9 G/dL (31.0-37.0); MEAN CORPUSCULAR VOLUME 83 fL (80-100); MONOCYTES # (AUTO) 0.8 K/uL (0.1-1.0); MONOCYTES % (AUTO) 11.1 % (2.0-9.0); NEUTROPHILS # (AUTO) 5.7 K/uL (1.8-7.7); PLATELET COUNT (AUTO) 243 K/uL (150-450); RED BLOOD CELL COUNT(AUTO) 4.96 MIL/uL (4.50-5.90); RED CELL DISTRIBUTION WIDTH 17.7 % (11.5-14.5)
[2017-11-22 17:42] LABS: ANION GAP 9 mmol/L (8-16); CALCIUM, TOTAL 8.9 mg/dL (8.8-10.5); CARBON DIOXIDE 27 mmol/L (22-29); CHLORIDE 107 mmol/L (98-107); CREATININE 1.01 mg/dL (0.60-1.30); GLOMERULAR FILTR. RATE CALC > 60 mL/min (>60); GLUCOSE,RANDOM 111 mg/dL (70-110); POTASSIUM 3.5 mmol/L (3.5-5.1); SODIUM SERUM 143 mmol/L (136-145); UREA NITROGEN, BLOOD 18 mg/dL (7-18)
[2017-11-22 17:48] LABS: ALANINE AMINOTRANSFERASE 40 U/L (12-78); ALBUMIN 3.4 g/dL (3.4-5.0); ALKALINE PHOSPHATASE 96 U/L (46-116); ASPARTATE AMINOTRANSFERASE 28 U/L (15-37); BILIRUBIN,TOTAL 0.4 mg/dL (0.1-1.0); TOTAL PROTEIN, SERUM 7.5 g/dL (6.4-8.2)
[2017-11-22 17:54] VITALS: BP 112/75
[2017-11-22 17:56] LABS: AMPHET/METH SCREEN,URINE NEGATIVE (NEGATIVE); BARBITURATE SCREEN, URINE NEGATIVE (NEGATIVE); BENZODIAZEPINES SCREEN,URINE NEGATIVE (NEGATIVE); CANNABINOID SCREEN,URINE NEGATIVE (NEGATIVE); COCAINE SCREEN,URINE NEGATIVE (NEGATIVE); METHADONE SCREEN, URINE NEGATIVE (NEGATIVE); OPIATE SCREEN,URINE NEGATIVE (NEGATIVE)
[2017-11-22 17:57] LABS: PHENCYCLIDINE SCREEN,URINE NEGATIVE (NEGATIVE)
== END 2017-11-22 20:10 | disposition home or self-care (01) ==
LOC: EMS 16:19
DX: F84.5 Asperger's syndrome (principal); F41.9 Anxiety disorder, unspecified; J44.9 Chronic obstructive pulmonary disease, unspecified; G47.30 Sleep apnea, unspecified; Z77.22 Contact with and (suspected) exposure to environmental tobacco smoke (acute) (chronic); Z79.899 Other long term (current) drug therapy
CPT/HCPCS: 36415; 80053; 80307; 85025; 99284; G0480

== ENCOUNTER 2018-02-25 13:21 | Emergency (ER) | payer OTHER ==
[~2018-02-25] VITALS: Ht 162.6 cm; Wt 109.1 kg
[2018-02-25] MEDS ORDERED: CLOTRIMAZOLE 1% 15 GM CREAM TP ONE (16:15)
[2018-02-25 17:09] VITALS: BP 131/84
== END 2018-02-25 17:20 | disposition home or self-care (01) ==
LOC: EDUNIT# 13:21 → EMS 13:28
DX: S30.813A Abrasion of scrotum and testes, initial encounter (principal); B35.6 Tinea cruris; J45.909 Unspecified asthma, uncomplicated; F31.9 Bipolar disorder, unspecified; J44.9 Chronic obstructive pulmonary disease, unspecified; K21.9 Gastro-esophageal reflux disease without esophagitis; I10 Essential (primary) hypertension; Z86.73 Personal history of transient ischemic attack (TIA), and cerebral infarction without residual deficits; Z77.22 Contact with and (suspected) exposure to environmental tobacco smoke (acute) (chronic); Z88.8 Allergy status to other drugs, medicaments and biological substances; X58.XXXA Exposure to other specified factors, initial encounter; Y93.89 Activity, other specified; Y92.89 Other specified places as the place of occurrence of the external cause; Y99.8 Other external cause status

== ENCOUNTER 2018-07-10 11:18 | Emergency (ER) | payer OTHER ==
[~2018-07-10] VITALS: Ht 180.3 cm; Wt 127.7 kg
[~2018-07-10 11:18] MED LIST changes: -CETI-290 PO; +CETI10TA59 PO
[2018-07-10] MEDS ORDERED: ADV250 IH (11:52)
[2018-07-10 13:08] LABS: BASOPHILS % (AUTO) 1.1 % (0.0-2.0); EOSINOPHILS % (AUTO) 2.7 % (1.0-6.0); HEMATOCRIT 45.9 % (41-53); HEMOGLOBIN 15.1 g/dL (13.5-17.5); LYMPHOCYTES # (AUTO) 1.3 K/uL (1.0-4.8); LYMPHOCYTES % (AUTO) 24.9 % (22.0-44.0); MEAN CORPUSCULAR HEMOGLOBIN 28.3 pg (26.0-34.0); MEAN CORPUSCULAR HGB CONC 32.8 G/dL (31.0-37.0); MEAN CORPUSCULAR VOLUME 86 fL (80-100); MONOCYTES # (AUTO) 0.4 K/uL (0.1-1.0); MONOCYTES % (AUTO) 6.9 % (2.0-9.0); NEUTROPHILS # (AUTO) 3.4 K/uL (1.8-7.7); NEUTROPHILS % (AUTO) 64.4 % (40.0-70.0); PLATELET COUNT (AUTO) 251 K/uL (150-450); RED BLOOD CELL COUNT(AUTO) 5.32 MIL/uL (4.50-5.90); RED CELL DISTRIBUTION WIDTH 14.7 % (11.5-14.5)
[2018-07-10 13:21] LABS: ANION GAP 10 mmol/L (8-16); APPEARANCE,URINE CLEAR (CLEAR); BILIRUBIN,URINE NEGATIVE (NEGATIVE); CALCIUM, TOTAL 9.1 mg/dL (8.8-10.5); CARBON DIOXIDE 27 mmol/L (22-29); CHLORIDE 103 mmol/L (98-107); CREATININE 0.92 mg/dL (0.60-1.30); GLOMERULAR FILTR. RATE CALC > 60 mL/min (>60); GLUCOSE, URINE (UA) NEGATIVE (NEGATIVE); GLUCOSE,RANDOM 104 mg/dL (70-110); KETONES,URINE NEGATIVE (NEGATIVE); LEUKOCYTE ESTERASE ,URINE NEGATIVE (NEGATIVE); NITRATE,URINE NEGATIVE (NEGATIVE); PH,URINE 6.5 (5.0-8.0); POTASSIUM 4.1 mmol/L (3.5-5.1); PROTEIN,URINE NEGATIVE (NEGATIVE); SODIUM SERUM 140 mmol/L (136-145); UREA NITROGEN, BLOOD 12 mg/dL (7-18); UROBILINOGEN,URINE 0.2 mg/dL (<=1.0)
[2018-07-10 13:30] LABS: B-TYPE NATRIURETIC PEPTIDE < 5 pg/mL (0-100)
[2018-07-10 13:43] LABS: ALANINE AMINOTRANSFERASE 35 U/L (12-78); ALKALINE PHOSPHATASE 83 U/L (46-116); ASPARTATE AMINOTRANSFERASE 23 U/L (15-37); BILIRUBIN,TOTAL 0.3 mg/dL (0.1-1.0); CREATINE KINASE, TOTAL ONLY 375 U/L (39-308); TOTAL PROTEIN, SERUM 7.2 g/dL (6.4-8.2)
[2018-07-10 13:57] LABS: OCCULT BLOOD,URINE SMALL (NEGATIVE)
[2018-07-10 13:58] LABS: BACTERIA,URINE None Seen /HPF (None Seen); SQUAMOUS EPITHELIAL CELL,UR Rare /LPF (None Seen); WBC,URINE None Seen /HPF (0-5)
[2018-07-10 15:44] VITALS: BP 136/60
== END 2018-07-10 15:55 | disposition home or self-care (01) ==
LOC: EMS 11:18
DX: J45.909 Unspecified asthma, uncomplicated (principal); I48.91 Unspecified atrial fibrillation; F41.9 Anxiety disorder, unspecified; F32.9 Major depressive disorder, single episode, unspecified; I10 Essential (primary) hypertension; Z77.22 Contact with and (suspected) exposure to environmental tobacco smoke (acute) (chronic); Z88.8 Allergy status to other drugs, medicaments and biological substances; Z79.899 Other long term (current) drug therapy
CPT/HCPCS: 93005